=== PATIENT | male | born 1975 | race Two or more races ===

== ENCOUNTER 2023-05-24 09:35 | Emergency (ER) | payer MEDICAID ==
[~2023-05-24] VITALS: Ht 167.6 cm; Wt 72.7 kg
[2023-05-24] MEDS ORDERED: IBUPROFEN 600 MG TABLET PO ONE (10:00)
[2023-05-24 10:10] LABS: APPEARANCE,URINE CLEAR (CLEAR); BILIRUBIN,URINE NEGATIVE (NEGATIVE); COLOR,URINE YELLOW (YELLOW); GLUCOSE, URINE (UA) NEGATIVE (NEGATIVE); KETONES,URINE NEGATIVE (NEGATIVE); LEUKOCYTE ESTERASE ,URINE NEGATIVE (NEGATIVE); NITRATE,URINE NEGATIVE (NEGATIVE); OCCULT BLOOD,URINE NEGATIVE (NEGATIVE); PROTEIN,URINE 30-70 mg/dL (NEGATIVE); SPECIFIC GRAVITIY, URINE 1.023 (1.003-1.030); UROBILINOGEN,URINE <=1.0 mg/dL (<=1.0)
[2023-05-24 10:32] LABS: BACTERIA,URINE None Seen /HPF (None Seen); RBC,URINE None Seen /HPF (0-2); WBC,URINE 0-2 /HPF (0-5)
[2023-05-24] MEDS ORDERED: LEVO-72 PO (12:34)
[2023-05-24] MEDS ORDERED: IBUP-1492 PO (12:34)
[2023-05-24 12:42] VITALS: BP 123/60; PULSE 80; RESP 16; TEMP 99.4
== END 2023-05-24 12:50 | disposition home or self-care (01) ==
LOC: EMS 09:37
DX: N45.2 Orchitis (principal); F10.90 Alcohol use, unspecified, uncomplicated; Y90.9 Presence of alcohol in blood, level not specified
CPT/HCPCS: 76870; 81001; 87491; 87591; 99284; Z7502; Z7610